=== PATIENT | female | born 1935 | race Caucasian/White ===

== ENCOUNTER → 2016-11-19 | Outpatient (CLI) | payer MEDICARE ==
[~2016-11-19] MED LIST: GLUCOPHAGE500 MG PO
== END ==
LOC: RAD 13:15
DX: R09.1 Pleurisy (principal); I25.10 Atherosclerotic heart disease of native coronary artery without angina pectoris
CPT/HCPCS: 71020

== ENCOUNTER 2020-05-21 12:23 | Inpatient (IN) | payer MEDICARE ==
[~2020-05-21] VITALS: Ht 157.5 cm; Wt 47.6 kg
[~2020-05-21 12:23] MED LIST changes: +NORCO 5-325 TA1 EACH PO
[2020-05-21 13:06] LABS: HEMOGLOBIN 15.5 gm/dl (12.3-15.3); WHITE BLOOD COUNT 11.4 K/UL (4.5-11.0)
[2020-05-21 13:27] LABS: BUN/CREATININE RATIO 16 (0-10)
[2020-05-21] MEDS ORDERED: CARTIA XT120 MG PO (16:38)
[2020-05-21] MEDS ORDERED: NITROSTAT 0.40.4 MG SL (16:38)
[2020-05-21] MEDS ORDERED: VITAMIN D21250 MCG PO (16:39)
[2020-05-21] MEDS ORDERED: LIPITOR TAB 2020 MG PO (16:40)
[2020-05-21] MEDS ORDERED: K-TAB ER10 MEQ PO (16:40)
[2020-05-21] MEDS ORDERED: LEVOTHYROXINE25 MC1 PO (16:41)
[2020-05-21 22:49] LABS: ACINETOBACTER BAUMANNII Not Detected (Negative); CANDIDA ALBICANS Not Detected (Negative); CANDIDA KRUSEI Not Detected (Negative); CANDIDA TROPICALIS Not Detected (Negative); ENTEROCOCCUS Not Detected (Negative); ESCHERICHIA COLI Not Detected (Negative); HAEMOPHILUS INFLUENZAE Not Detected (Negative); KLEBSIELLA OXYTOCA Not Detected (Negative); KLEBSIELLA PNEUMONIAE Not Detected (Negative); KPC-CARBAPENEM-RESISTANCE GENE Not Detected (Negative); PROTEUS Not Detected (Negative); PSEUDOMONAS AERUGINOSA Not Detected (Negative); SERRATIA MARCESANS Not Detected (Negative); STAPHYLOCOCCUS Not Detected (Negative); STAPHYLOCOCCUS AUREUS Not Detected (Negative); STREP PYOGENES (GROUP A) Not Detected (Negative); mecA (METHICILLIN RESIST GENE Not Detected (Negative); vanA/B (VANCOMYCIN RESIST GENE Not Detected (Negative)
[2020-05-22 00:07] LABS: STREP AGALACTIAE (GROUP B) DETECTED (Negative); STREPTOCOCCUS DETECTED (Negative)
[2020-05-22 06:44] LABS: HEMOGLOBIN 12.6 gm/dl (12.3-15.3); RED BLOOD COUNT 4.14 M/UL (4.00-5.10); WHITE BLOOD COUNT 27.7 K/UL (4.5-11.0)
[2020-05-22] MEDS ORDERED: ASPIRIN EC81 MG PO (13:34)
[2020-05-22] MEDS ORDERED: BIOTIN1 MG PO (13:37)
[2020-05-22] MEDS ORDERED: ACTOS TAB 15MG15 MG PO (13:38)
[2020-05-23 04:47] LABS: HEMOGLOBIN 12.8 gm/dl (12.3-15.3); RED BLOOD COUNT 4.3 M/UL (4.00-5.10)
[2020-05-23 04:54] LABS: WHITE BLOOD COUNT 11.6 K/UL (4.5-11.0)
[2020-05-24 06:25] LABS: RED BLOOD COUNT 4.15 M/UL (4.00-5.10)
[2020-05-24 06:28] LABS: WHITE BLOOD COUNT 8.4 K/UL (4.5-11.0)
[2020-05-25 04:36] LABS: HEMOGLOBIN 12.2 gm/dl (12.3-15.3); RED BLOOD COUNT 4.02 M/UL (4.00-5.10); WHITE BLOOD COUNT 8.9 K/UL (4.5-11.0)
[2020-05-25] MEDS ORDERED: OMNICEF 300 MG300 MG PO (10:21)
--- NOTE | 2020-05-25 10:54 | NUR ---
COMPLETE ANTIBIOTIC EVEN IF FEELING BETTER. KEEP FOLLOW UP APPOINTMENT, NOTIFY MD IF PRODUCTIVE COUGH OR WORSENING OF PNEUMONIA. VERBALIZED UNDERSTANDING. MARLA HOLGUIN R.N.
--- NOTE | 2020-05-25 10:57 | NUR ---
05/25/20 1055 REPORT CALLED TO DINO AT [facility] NOTIFIED OF DISCHARGE
== END 2020-05-25 14:55 | disposition home health service (06) | DRG 871 ==
LOC: ER1 12:23 → CDU 15:50 → MED SURG 4 15:50
PROVIDERS: Internal Medicine; Physician Assistant Medical; ADMIT Internal Medicine
DX: A41.9 Sepsis, unspecified organism (principal); J18.9 Pneumonia, unspecified organism; G93.41 Metabolic encephalopathy; E87.2 Acidosis; N30.00 Acute cystitis without hematuria; I25.10 Atherosclerotic heart disease of native coronary artery without angina pectoris; E87.6 Hypokalemia; E11.9 Type 2 diabetes mellitus without complications; I10 Essential (primary) hypertension; Z20.822 Contact with and (suspected) exposure to COVID-19; K80.20 Calculus of gallbladder without cholecystitis without obstruction; F01.50 Vascular dementia, unspecified severity, without behavioral disturbance, psychotic disturbance, mood disturbance, and anxiety; N20.0 Calculus of kidney; K57.30 Diverticulosis of large intestine without perforation or abscess without bleeding; Z95.1 Presence of aortocoronary bypass graft; Z90.710 Acquired absence of both cervix and uterus; Z87.81 Personal history of (healed) traumatic fracture; Z80.8 Family history of malignant neoplasm of other organs or systems; Z79.84 Long term (current) use of oral hypoglycemic drugs; Z79.82 Long term (current) use of aspirin; Z79.890 Hormone replacement therapy; Z79.899 Other long term (current) drug therapy
CPT/HCPCS: 0240U; 36415; 51702; 70450; 71045; 80048; 80053; 80202; 81001; 82962; 83605; 83735; 84132; 84484; 85025; 85027; 85610; 87040; 87077; 87086; 87150; 87186; 93005; 96365; 96366; 96372; 96375; 96376; 97110; 97116-GP-CQ; 97162; 97166; 97530; 97535; 99285; J1650; J2405; J2543; J3370; J7030; J7070; Q9967